=== PATIENT | female | born 1960 | race Caucasian/White ===

== ENCOUNTER 2022-08-12 12:45 | Emergency (ER) | payer OTHER ==
[2022-08-12] MEDS ORDERED: Sodium Chloride 0.9% 1,000 ML ONE (13:09)
[2022-08-12] MEDS ORDERED: Sodium Chloride 0.9% 500 ML IV SCH (13:30)
[2022-08-12] MEDS ORDERED: Sodium Chloride 0.9% 1,000 ML IV ONE (13:32)
[2022-08-12] MEDS ORDERED: Acetaminophen 500 MG Tab PO ONE (13:34)
[2022-08-12 13:39] LABS: ANION GAP 13.1 mmol/L (5-15)
[2022-08-12 13:52] LABS: CORONAVIRUS COVID-19 NAA NEGATIVE (NEGATIVE); RESPIRATORY SYNCYTIAL VIR NAA NEGATIVE (NEGATIVE)
[2022-08-12] MEDS ORDERED: Nitrofurantoin Monohydrate/Macrocrystalline 100 MG Cap PO ONE (15:31)
[2022-08-12 15:39] VITALS: BP 114/69; PULSE 105
== END 2022-08-12 16:35 | disposition home or self-care (01) ==
LOC: KA.ED 12:45
DX: N39.0 Urinary tract infection, site not specified (principal); B96.89 Other specified bacterial agents as the cause of diseases classified elsewhere; J06.9 Acute upper respiratory infection, unspecified; I10 Essential (primary) hypertension; Z88.5 Allergy status to narcotic agent; Z79.01 Long term (current) use of anticoagulants; Z79.899 Other long term (current) drug therapy; Z20.822 Contact with and (suspected) exposure to COVID-19
CPT/HCPCS: 0241U; 36415; 71046; 80048; 81001; 85025; 87086; 87088; 96360; 96361; 99283; 99284-25; A9270-GY; J7030

== ENCOUNTER 2023-06-07 12:29 | Emergency (ER) | payer OTHER ==
[2023-06-07] MEDS ORDERED: Amoxicillin/Clavulanate K 875-125 MG Tab PO ONE (12:44)
[2023-06-07 12:45] VITALS: BP 147/88; PULSE 76
== END 2023-06-07 13:00 | disposition home or self-care (01) ==
LOC: KA.ED 12:29
DX: H60.21 Malignant otitis externa, right ear (principal); I10 Essential (primary) hypertension; Z88.8 Allergy status to other drugs, medicaments and biological substances; Z88.2 Allergy status to sulfonamides; Z79.899 Other long term (current) drug therapy; Z79.2 Long term (current) use of antibiotics
CPT/HCPCS: 99282; 99283; A9270-GY